=== PATIENT | male | born 1985 | race African-American/Black ===

== ENCOUNTER 2022-01-20 14:33 | Emergency (ER) | payer OTHER ==
[2022-01-20 14:54] LABS: BASOPHILS % (AUTO) 0.4 %; EOSINOPHILS % (AUTO) 0.6 %; HCT - HEMATOCRIT 45.5 % (42.0-52.0); HGB - HEMOGLOBIN 15.4 g/dL (14.0-18.0); LYMPHOCYTES # (AUTO) 1.7 10^3/uL (1.5-3.5); LYMPHOCYTES % (AUTO) 31.8 %; MEAN CORPUSCULAR HEMOGLOBIN 29.2 pg (27.0-31.0); MEAN CORPUSCULAR HGB CONC 33.8 g/dL (32.0-36.0); MEAN CORPUSCULAR VOLUME 86.2 fL (80.0-94.0); MEAN PLATELET VOLUME 9.1 fL (7.4-11.4); MONOCYTES # (AUTO) 0.4 10^3/uL (0.0-1.0); MONOCYTES % (AUTO) 7.9 %; NEUTROPHILS # (AUTO) 3.2 10^3/uL (1.5-6.6); NEUTROPHILS % (AUTO) 59.1 %; PLT - PLATELET COUNT 291 10^3/uL (130-450); RED BLOOD COUNT 5.28 10^6/uL (4.70-6.10); RED CELL DISTRIBUTION WIDTH 13.3 % (12.0-15.0); WHITE BLOOD COUNT 5.4 x10^3/uL (4.8-10.8)
[2022-01-20 14:57] VITALS: BP 152/95
[2022-01-20 15:13] LABS: ACETAMINOPHEN < 10 ug/mL (10-30); ALBUMIN 4.7 g/dL (3.2-5.5); ALBUMIN/GLOBULIN RATIO 1.2 (1.0-2.2); ALKALINE PHOSPHATASE 47 IU/L (42-121); ALT ALANINE AMINOTRANSFERASE 37 IU/L (10-60); AST ASPARTATE AMINOTRANSFERASE 37 IU/L (10-42); BUN - BLOOD UREA NITROGEN 14 mg/dL (6-20); CALCIUM 9.9 mg/dL (8.5-10.3); CARBON DIOXIDE - CO2 27 mmol/L (21-32); CHLORIDE 101 mmol/L (101-111); CREATININE 1.3 mg/dL (0.6-1.2); ETOH - ETHANOL < 5.0 mg/dL; GFR - MDRD 62 (>89); GLUCOSE 93 mg/dL (70-100); LIPASE 29 U/L (22-51); POTASSIUM 3.7 mmol/L (3.5-5.0); SALICYLATE < 6.0 mg/dL; SODIUM 138 mmol/L (135-145); TOTAL PROTEIN 8.5 g/dL (6.7-8.2)
--- NOTE | 2022-01-20 15:15 | ED Physician Documentation ---
History of Present Illness - Stated complaint Stated Complaint: MHE - Chief complaint Chief Complaint: MHE - Additonal information Additional information: 36-year-old -[place] male presents to the emergency department [place] [employer] [place] for evaluation of SI and HI. 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 This gentleman seems to have been dealing with depression for quite some time. Currently on Lexapro. He had been planning to be admitted to [facility] for further evaluation and management of his mental health disorders but was told today that there were no beds. It was after this that he made the comments about wanting to harm himself or others. His psychologist called me on the phone and described him as very paranoid and evasive in his answers. The patient endorses that he had thought of hanging himself 1 year ago but no longer has that plan. He does state that he is angry with some members of the [employer] but will not discuss who. He states he stays away from them but would harm them. He does not give a specific plan Review of Systems Constitutional: denies: Fever, Chills Eyes: reports: Reviewed and negative Nose: reports: Reviewed and negative Cardiac: reports: Reviewed and negative Respiratory: reports: Reviewed and negative : reports: Reviewed and negative Psychiatric: reports: Suicidal, Homicidal. denies: Hallucinations, Delusions, Anxiety, Insomnia PD PAST MEDICAL HISTORY - Allergies Allergies/Adverse Reactions: Allergies Allergy/AdvReac Type Severity Reaction Status Date / Time No Known Drug Allergies Allergy Verified 01/20/22 14:53 PD ED PE NORMAL - General General: Alert and oriented X 3, No acute distress, Well developed/nourished - HEENT HEENT: PERRL - Neck Neck: Supple, no meningeal sign - Cardiac Cardiac: RRR, No murmur - Respiratory Respiratory: No respiratory distress - Abdomen Abdomen: Normal bowel sounds - Derm Derm: Normal color, Warm and dry - Extremities Extremities: No deformity, No tenderness to palpate - Neuro Neuro: Alert and oriented X 3, 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 Vague SI with no specific plan. He does endorse that he would harm others in the [employer] but also is not specific as to whom and how. Paranoid) Results - Vitals Vitals: Vital Signs - 24 hr 01/20/22 14:53 Temperature 36.5 C Heart Rate 83 Respiratory 16 Rate Blood Pressure 152/95 H O2 Saturation 98 Oxygen O2 Source Room air - Labs Labs: Laboratory Tests 01/20/22 01/20/22 01/20/22 14:47 14:47 14:47 WBC 5.4 RBC 5.28 Hgb 15.4 Hct 45.5 MCV 86.2 MCH 29.2 MCHC 33.8 RDW 13.3 Plt Count 291 MPV 9.1 Neut # (Auto) 3.2 Lymph # (Auto) 1.7 Stark # (Auto) 0.4 Eos # (Auto) 0.0 Baso # (Auto) 0.0 Absolute Nucleated RBC 0.00 Nucleated RBC % 0.0 Sodium 138 Potassium 3.7 Chloride 101 Carbon Dioxide 27 Anion Gap 10.0 BUN 14 Creatinine 1.3 H Estimated GFR (MDRD) 62 L Glucose 93 Calcium 9.9 Total Bilirubin 1.0 AST 37 ALT 37 Alkaline Phosphatase 47 Total Protein 8.5 H Albumin 4.7 Globulin 3.8 Albumin/Globulin Ratio 1.2 Lipase 29 TSH 0.87 Urine Color Urine Clarity Urine pH Ur Specific Bolton Urine Protein Urine Glucose (UA) Urine Ketones Urine Occult Blood Urine Nitrite Urine Bilirubin Urine Urobilinogen Ur Leukocyte Esterase Urine RBC Urine WBC Ur Squamous Epith Cells Urine Bacteria Ur Microscopic Review Urine Culture Comments Salicylates < 6.0 Urine Opiates Screen Ur Oxycodone Screen Urine Methadone Screen Ur Propoxyphene Screen Acetaminophen < 10 L Ur Barbiturates Screen Ur Tricyclics Screen Ur Phencyclidine Scrn Ur Amphetamine Screen U Methamphetamines Scrn U Benzodiazepines Scrn Urine Cocaine Screen U Cannabinoids Screen Ethyl Alcohol < 5.0 SARS-CoV-2 (PCR) 01/20/22 01/20/22 15:12 17:34 WBC RBC Hgb Hct MCV MCH MCHC RDW Plt Count MPV Neut # (Auto) Lymph # (Auto) Stark # (Auto) Eos # (Auto) Baso # (Auto) Absolute Nucleated RBC Nucleated RBC % Sodium Potassium Chloride Carbon Dioxide Anion Gap BUN Creatinine Estimated GFR (MDRD) Glucose Calcium Total Bilirubin AST ALT Alkaline Phosphatase Total Protein Albumin Globulin Albumin/Globulin Ratio Lipase TSH Urine Color YELLOW Urine Clarity CLEAR Urine pH 6.0 Ur Specific Bolton >=1.030 H Urine Protein NEGATIVE Urine Glucose (UA) NEGATIVE Urine Ketones NEGATIVE Urine Occult Blood SMALL H Urine Nitrite NEGATIVE Urine Bilirubin NEGATIVE Urine Urobilinogen 0.2 (NORMAL) Ur Leukocyte Esterase NEGATIVE Urine RBC 0-5 Urine WBC 0-3 Ur Squamous Epith Cells NONE SEEN Urine Bacteria None Seen Ur Microscopic Review INDICATED Urine Culture Comments NOT INDICATED Salicylates Urine Opiates Screen NEGATIVE Ur Oxycodone Screen NEGATIVE Urine Methadone Screen NEGATIVE Ur Propoxyphene Screen NEGATIVE Acetaminophen Ur Barbiturates Screen NEGATIVE Ur Tricyclics Screen NEGATIVE Ur Phencyclidine Scrn NEGATIVE Ur Amphetamine Screen NEGATIVE U Methamphetamines Scrn NEGATIVE U Benzodiazepines Scrn NEGATIVE Urine Cocaine Screen NEGATIVE U Cannabinoids Screen NEGATIVE Ethyl Alcohol SARS-CoV-2 (PCR) NOT DETECTED PD MEDICAL DECISION MAKING - ED course Complexity details: reviewed results, re-evaluated patient, considered differential, d/w patient ED course: 36-year-old male who is active [employer] is referred to the emergency department for evaluation of SI and passive HI statements. For this provider he denied suicidal ideation but did passively state that he would harm others. It sounds as though he is upset with members and his command. However he does state that he would not harm them as long as they do not get in his way. Patient presents as fairly paranoid and he perseverates on individuals within his command whom he believes mean him harm or have done him wrong. He does not specify who these individuals are. He frequently experiences nightmares and only sleeps 2 to 3 hours. Patient does desire voluntary psychiatric hospitalization but does not want to go to [facility]. 2024: Patient has been accepted to [facility] psychiatric facility by Dr. Morales. Patient is alert and compliant here in the emergency department. He agrees to go voluntarily. Appropriate COBRA paperwork completed ] Departure - Departure Disposition: [facility] Psych Hosp/Unit DC/Xfer Clinical Impression: Paranoia (psychosis), Homicidal ideation Condition: Stable
[2022-01-20 15:22] LABS: MUDS CUTOFF CONCENTRATIONS CUTOFF CONC BELOW:
[2022-01-20 15:25] LABS: BILIRUBIN,URINE NEGATIVE (NEGATIVE); GLUCOSE, URINE (UA) NEGATIVE (NEGATIVE); KETONES,URINE (UA) NEGATIVE (NEGATIVE); LEUKOCYTE ESTERASE, URINE NEGATIVE (NEGATIVE); NITRITE,URINE NEGATIVE (NEGATIVE); OCCULT BLOOD,URINE SMALL (NEGATIVE); PROTEIN,URINE NEGATIVE (NEGATIVE); UROBILINOGEN,URINE 0.2 (NORMAL) E.U./dL (NORMAL)
[2022-01-20 15:27] LABS: CLARITY,URINE CLEAR (CLEAR)
[2022-01-20 15:40] LABS: BACTERIA,URINE None Seen /HPF (None Seen); RBC,URINE 0-5 /HPF (0-5); SQUAMOUS EPITHELIAL CELL,UR NONE SEEN (<= Few); WBC,URINE 0-3 /HPF (0-3)
[2022-01-20 15:41] LABS: AMPHETAMINE SCREEN,URINE NEGATIVE (NEGATIVE); BARBITURATE SCREEN,UR NEGATIVE (NEGATIVE); BENZODIAZEPINES SCREEN, URINE NEGATIVE (NEGATIVE); COCAINE SCREEN URINE NEGATIVE (NEGATIVE); METHADONE SCREEN, URINE NEGATIVE (NEGATIVE); METHAMPHETAMINES SCREEN, URINE NEGATIVE (NEGATIVE); OPIATE SCREEN, URINE NEGATIVE (NEGATIVE); OXYCODONE SCREEN, URINE NEGATIVE (NEGATIVE); PROPOXYPHENE SCREEN, URINE NEGATIVE (NEGATIVE); THC CANNABINOID SCREEN, URINE NEGATIVE (NEGATIVE); TRICYCLIC ANTIDEPRESSANT,URINE NEGATIVE (NEGATIVE)
== END 2022-01-20 23:04 ==
LOC: ED 14:33
DX: R45.850 Homicidal ideations (principal); F22 Delusional disorders; Z20.822 Contact with and (suspected) exposure to COVID-19
CPT/HCPCS: 36415; 80053; 80306; 80307; 80320; 80329; 81001; 81003; 83690; 84443; 85025; 87086; 99283; 99285